=== PATIENT | male | born 1975 | race Asian ===

== ENCOUNTER 2021-02-13 11:45 | Emergency (ER) | payer SELFPAY ==
[2021-02-13 14:39] VITALS: BP 134/84
== END 2021-02-14 01:50 | disposition left against medical advice (07) ==
LOC: ED 11:45
DX: J11.1 Influenza due to unidentified influenza virus with other respiratory manifestations (principal); Z53.21 Procedure and treatment not carried out due to patient leaving prior to being seen by health care provider